=== PATIENT | male | born 1960 | race African-American/Black ===

== ENCOUNTER 2018-06-19 15:25 | Inpatient (IN) | payer OTHER ==
[2018-06-19 16:01] VITALS: BMI 35.6
--- NOTE | 2018-06-19 16:14 | HP ---
CIWA Score - Admission Criteria OASAS Guidelines: Admission for Medically Managed Detox: Requires at least one of the followin. CIWA greater than 12 2. Seizures within the past 24 hours 3. Delirium tremens within the past 24 hours 4. Hallucinations within the past 24 hours 5. Acute intervention needed for co occurring medical disorder 6. Acute intervention needed for co occurring psychiatric disorder 7. Severe withdrawal that cannot be handled at a lower level of care (continued vomiting, continued diarrhea, abnormal vital signs) requiring intravenous medication and/or fluids 8. Admission ROS S - HPI Chief Complaint: I am here for rehab for continued treatment. Allergies/Adverse Reactions: Allergies Allergy/AdvReac Type Severity Reaction Status Date / Time soy Allergy Severe Hives Verified 09/09/14 21:08 soybean Allergy Severe Hives Verified 09/09/14 21:08 History of Present Illness: pt is a 57yr old male with a history of cocaine dependence seeking rehab for treatment. Pt is on a mmtp program with 80mg last dose received today from [facility] from [address] [place] [id number] pending verification Exam Limitations: Physical Impairment (uses a cane for ambulating) - Ebola screening Have you traveled outside of the country in the last 21 days: No Have you had contact with anyone from an Ebola affected area: No Have you been sick,other than usual withdrawal symptoms: No - Review of Systems Constitutional: No Symptoms Reported EENT: reports: No Symptoms Reported Respiratory: reports: No Symptoms reported Cardiac: reports: No Symptoms Reported GI: reports: No Symptoms Reported : reports: No Symptoms Reported Musculoskeletal: reports: Joint Stiffness Integumentary: reports: No Symptoms Reported Neuro: reports: No Symptoms reported Endocrine: reports: No Symptoms Reported Hematology: reports: No Symptoms Reported Psychiatric: reports: Orientated x3 Other Systems: Reviewed and Negative Patient History - Patient Medical History Hx Anemia: No Hx Asthma: No Hx Chronic Obstructive Pulmonary Disease (COPD): No Hx Cancer: No Hx Cardiac Disorders: No Hx Congestive Heart Failure: No Hx Hypertension: No Hx Hypercholesterolemia: No Hx Pacemaker: No HX Cerebrovascular Accident: No Hx Seizures: No Hx Dementia: No Hx Diabetes: No Hx Gastrointestinal Disorders: No Hx Liver Disease: No Hx Genitourinary Disorders: No Hx Sexually Transmitted Disorders: No Hx Renal Disease (ESRD): No Hx Thyroid Disease: No Hx Human Immunodeficiency Virus (HIV): No (negative) Hx Hepatitis C: No (negative) Hx Depression: No Hx Suicide Attempt: No Hx Bipolar Disorder: No Hx Schizophrenia: No - Patient Surgical History Past Surgical History: Yes Hx Orthopedic Surgery: Yes (FX OF RIGHT ANKLE IN 08/[address] [facility]) Anesthesia Reaction: No - PPD History Previous Implant?: Yes Documented Results: Negative w/o proof PPD to be Administered?: Yes - Reproductive History Patient is a Female of Child Bearing Age (11 -55 yrs old): No - Smoking Cessation Smoking history: Current every day smoker Have you smoked in the past 12 months: Yes Aproximately how many cigarettes per day: 10 Cigars Per Day: 0 Hx Chewing Tobacco Use: No Initiated information on smoking cessation: Yes 'Breaking Loose' booklet given: 06/19/18 - Substance & Tx. History Hx Alcohol Use: Yes Hx Substance Use: Yes Substance Use Type: Alcohol, Cocaine Hx Substance Use Treatment: Yes (last detox 2015 [facility]) - Substances Abused Alcohol Route: Oral Frequency: 1-3 times last 30 days Amount used: 2 cans beer Age of first use: 18 Date of Last Use: 06/15/18 Cocaine Route: Smoking Frequency: 1-2 times per week Amount used: $100 Age of first use: 24 Date of Last Use: 06/16/18 Family Disease History - Family Disease History Family Disease History: Diabetes: Father ( leg amputee), Mother (HTN/ ), Other: Father, Mother Admission Physical Exam S - Vital Signs Vital Signs: Vital Signs - 24 hr 06/19/18 15:59 Temperature 97.1 F L Pulse Rate 79 Respiratory 20 Rate Blood Pressure 136/83 - Physical General Appearance: Yes: Appropriately Dressed, Mild Distress, Obese HEENTM: Yes: Hearing grossly Normal, Normal Voice Respiratory: Yes: Lungs Clear, Normal Breath Sounds, No Respiratory Distress Neck: Yes: No masses,lesions,Nodules Breast: Yes: Within Normal Limits Cardiology: Yes: Regular Rhythm, Regular Rate, S1, S2 Abdominal: Yes: Normal Bowel Sounds, Non Tender, Flat Genitourinary: Yes: Within Normal Limits Back: Yes: Normal Inspection Musculoskeletal: Yes: full range of Motion, Gait Steady Extremities: Yes: Normal Capillary Refill, Normal Inspection, Tremors Neurological: Yes: Fully Oriented, Alert, Normal Response Integumentary: Yes: Normal Color Lymphatic: Yes: Within Normal Limits - Diagnostic (1) Ankle fracture, right Current Visit: Yes Status: Chronic Qualifiers: Encounter type: sequela Fracture type: closed Qualified Code(s): S82.891S - Other fracture of right lower leg, sequela (2) Anxiety and depression Current Visit: No Status: Acute (3) Cocaine dependence Current Visit: No Status: Acute Qualifiers: Substance use status: uncomplicated Qualified Code(s): F14.20 - Cocaine dependence, uncomplicated (4) Drug-induced mood disorder Current Visit: No Status: Acute (5) Essential hypertension Current Visit: Yes Status: Chronic (6) Insomnia Current Visit: No Status: Acute (7) Nicotine dependence Current Visit: Yes Status: Chronic Qualifiers: Nicotine product type: cigarettes Substance use status: uncomplicated Qualified Code(s): F17.210 - Nicotine dependence, cigarettes, uncomplicated (8) Syncope Current Visit: No Status: Acute (9) Use of cane as ambulatory aid Current Visit: Yes Status: Chronic (10) CML (chronic myelocytic leukemia) Current Visit: No Status: Chronic Cleared for Admission [facility] - Detox or Rehab [facility] Level of Care: Medically Managed Claeared for Rehab Admission: Yes [facility] Breath Alcohol Content Breath Alcohol Content: 0 Urine Drug Screen - Results Drug Screen Negative: No Urine Drug Screen Results: SASCHA-Cocaine, MTD-Methadone Inpatient Rehab Admission - Initial Determination Are CD services needed?: Yes Free of communicable disease: Yes Not in need of hospitalization: Yes - Rehab Admission Criteria Comorbidities: Yes Lacks judgement: Yes
[2018-06-19] MEDS ORDERED: MAGNESIUM CITRATE 300 ML BOTTLE PO PRN (16:22)
[2018-06-19] MEDS ORDERED: hydrOXYzine PAMOATE 50 MG CAPSULE (FP) PO PRN (16:22)
[2018-06-19] MEDS ORDERED: MAGNESIUM HYDROX 2400MG/30ML ORAL SUSPENSION 30 ML CUP PO PRN (16:22)
[2018-06-19] MEDS ORDERED: LOPERAMIDE HCL 2 MG CAPSULE PO PRN (16:22)
[2018-06-19] MEDS ORDERED: P-EPHED 60MG/TRIPROLIDI 2.5MG TABLET PO PRN (16:22)
[2018-06-19] MEDS ORDERED: MAG HYDROX/AL HYDROX/SIMETH 30 ML UNIT-DOSE CUP PO PRN (16:22)
[2018-06-19] MEDS ORDERED: NICOTINE POLACRILEX 4 MG GUM BC PRN (16:22)
[2018-06-19] MEDS ORDERED: IBUPROFEN 400 MG TABLET (FP) PO PRN (16:22)
--- NOTE | 2018-06-19 19:48 | PN ---
S Progress Note Note: pt states he is taking the medication gleebic for his CML but was told we may not carry this medication. Pt was told to have a family member bring it in for him. Pt in agreement.
[2018-06-19] MEDS ORDERED: TUBERCULIN PPD 5 TU/0.1ML VIAL ID ONE (20:14)
[2018-06-19] MEDS: THIAMINE HCL 100 MG TABLET (FP) PO SCH (21:27)
[2018-06-19] MEDS ORDERED: MELATONIN 5 MG TABLETS PO PRN (22:00)
[2018-06-20] MEDS: NICOTINE 21 MG/24 HOURS TOPICAL PATCH TD SCH (10:17)
[2018-06-20] MEDS: PRENATAL VITAMINS W/ FOLIC ACID TABLET (FP) PO SCH (10:17)
[2018-06-20] MEDS ORDERED: METHADONE HCL 10 MG TABLET PO SCH (10:30)
[2018-06-20] MEDS ORDERED: METHADONE HCL 40 MG DISPERSABLE TABLET ONE (10:38)
[2018-06-20] MEDS ORDERED: METHADONE HCL 10 MG TABLET ONE (10:38)
[2018-06-20] MEDS: METHADONE 40 MG, METHADONE 30 MG PO SCH (10:43)
--- NOTE | 2018-06-20 10:57 | HP ---
Psychiatrist Admission - Data Date of interview: 06/20/18 Admission source: [facility] Identifying data: Patient is a 57 year old single, father of one, unemployed, homeless, and is supported by [facility]. This is one of multiple admissions for patient. Patient admitted to for alcohol, cocaine, and heroin dependence. Medical History: FX of right ankle in August of 2019. Psychiatric History: Patient denies h/o psychiatric hospitalization, outpatient care, and suicide attempt. Patient is on methadone maintanence 70mg daily at the [facility] in [place]. At present he reports stable mood. Physical/Sexual Abuse/Trauma History: denies. Vital Signs: Vital Signs - 24 hr 06/19/18 06/19/18 06/19/18 15:59 19:40 20:25 Temperature 97.1 F L 100.7 F H Pulse Rate 79 91 H Respiratory 20 18 Rate Blood Pressure 136/83 142/81 06/20/18 06/20/18 06/20/18 00:30 03:30 06:54 Temperature 99.1 F Pulse Rate 67 Respiratory 18 18 18 Rate Blood Pressure 119/71 Allergies/Adverse Reactions: Allergies Allergy/AdvReac Type Severity Reaction Status Date / Time soy Allergy Severe Hives Verified 06/19/18 16:26 soybean Allergy Severe Hives Verified 06/19/18 16:26 No Known Drug Allergies Allergy Verified 06/19/18 16:44 Concur with the findings of this exam: Yes - Substance Abuse/Tx History Hx Alcohol Use: Yes ("couple cans per day") Hx Substance Use: Yes (Cocaine- 1-2 grams daily Heroin- one bundle per day ( negative for opiate)) Substance Use Type: Cocaine Hx Substance Use Treatment: Yes ([facility]. ) Mental Status Exam - Mental Status Exam Alert and Oriented to: Time, Place, Person Cognitive Function: Good Patient Appearance: Well Groomed Mood: Hopeful Affect: Appropriate Patient Behavior: Appropriate, Cooperative Speech Pattern: Clear, Appropriate Voice Loudness: Normal Thought Process: Intact, Goal Oriented Thought Disorder: Not Present Hallucinations: Denies Suicidal Ideation: Denies Homicidal Ideation: Denies Insight/Judgement: Poor Sleep: Fair Appetite: Good Muscle strength/Tone: Normal Gait/Station: Other (Ambulates with cane.) Psychiatric Findings - Problem List ([place] 1, 2,3) (1) Methadone maintenance therapy patient Current Visit: Yes Status: Chronic (2) Cocaine dependence Current Visit: Yes Status: Chronic Qualifiers: Substance use status: uncomplicated Qualified Code(s): F14.20 - Cocaine dependence, uncomplicated - Initial Treatment Plan Initial Treatment Plan: Psychoeducation provided. Rehab in progress. Observation.
[2018-06-20] MEDS ORDERED: PNEUMOC 13-VAL CONJ-DIP CRM/PF 0.5 ML DISP.SYRIN IM ONE (12:00)
[2018-06-20] MEDS ORDERED: ALBUTEROL SO4 8 GM HFA INHALER IH PRN (12:33)
--- NOTE | 2018-06-20 12:37 | PN ---
[facility] Progress Note Note: PATIENT SEEN FOR ELEVATED TEMPERATURE. PATIENT ADMITTED TO REHAB LAST NIGHT. LABS PENDING. PATIENT C/O DRY COUGH AND MILD SOB. PATIENT HAS H/O TOBACCO USE. PATIENT DENIES CHEST PAIN, PALPITATIONS AND DIZZINESS. Vital Signs Temperature 99.1 F 06/20/18 06:54 Pulse Rate 67 06/20/18 06:54 Respiratory Rate 18 06/20/18 06:54 Blood Pressure 119/71 06/20/18 06:54 O2 Sat by Pulse Oximetry (%) PE: SKIN WARM AND DRY CAR S1S2 RESP CTA BL, NO WHEEZING OR CRACKLES EXT AMB WITH CANE, FULL ROM ALERT AND ORIENTED X 3 A/P; COUGH MILD TEMP TOBACCO USE AND SOB WILL AWAIT LABS ENCOURAGE ORAL FLUIDS ALBUTEROL INH FOR SOB PRN CONTINUE ROBITUSSIN CONTINUE TO MONITOR CLINICALLY HOLD VACCINES UNTIL TEMP RESOLVED.
--- NOTE | 2018-06-20 12:51 | EKG ---
Test Reason : Blood Pressure : / mmHG Vent. Rate : 082 BPM Atrial Rate : 082 BPM P-R Int : 182 ms QRS Dur : 074 ms QT Int : 358 ms P-R-T Axes : 068 010 023 degrees QTc Int : 418 ms NORMAL SINUS RHYTHM NONSPECIFIC T WAVE ABNORMALITY ABNORMAL ECG NO PREVIOUS ECGS AVAILABLE Confirmed by MEGAN MILLER, ALEYDA ([id number]) on 06/20/2018 12:51:32 PM Referred By: Confirmed By:ALEYDA GUZMAN MD
[2018-06-20 16:05] LABS: HEMOGLOBIN 13.5 GM/dL (11.7-16.9); MCH 28.4 pg (25.7-33.7); MCHC 34.6 g/dl (32.0-35.9); MEAN CELL VOLUME 82.1 fl (80-96); MEAN PLT VOLUME 9.3 fl (7.5-11.1); PLATELET COUNT 178 K/MM3 (134-434); RBC 4.75 M/mm3 (4.00-5.60); RDW 14.6 % (11.9-15.9); WHITE BLOOD COUNT 3.3 K/mm3 (4.0-10.0)
[2018-06-20 16:14] LABS: ALBUMIN 3.4 g/dl (3.4-5.0); ALK PHOS 107 U/L (45-117); ANION GAP 5 MMOL/L (8-16); BILIRUBIN,TOTAL 0.3 mg/dL (0.2-1); BLOOD UREA NITROGEN 11 mg/dL (7-18); CALCIUM 8.1 mg/dL (8.5-10.1); CHLORIDE 103 mmol/L (98-107); CO2 29 mmol/L (21-32); CREATININE 0.9 mg/dL (0.55-1.3); GLUCOSE,RANDOM 79 mg/dL (74-106); POTASSIUM 4.4 mmol/L (3.5-5.1); SGOT/AST 22 U/L (15-37); SGPT/ALT 27 U/L (13-61); SODIUM 137 mmol/L (136-145); TOT PROT 7.1 g/dl (6.4-8.2)
[2018-06-20 19:05] LABS: URINE APPEARANCE CLEAR; URINE BILIRUBIN NEGATIVE (<2.0 mg/dL); URINE COLOR YELLOW; URINE GLUCOSE (UA) NEGATIVE (NEGATIVE); URINE KETONE NEGATIVE (NEGATIVE); URINE LEUK ESTERASE NEGATIVE (NEGATIVE); URINE NITRITE NEGATIVE (NEGATIVE); URINE PROTEIN NEGATIVE (NEGATIVE)
[2018-06-20] MEDS: THIAMINE HCL 100 MG TABLET (FP) PO SCH (21:36)
[2018-06-20] MEDS: guaiFENesin/D-METHORPHAN HB 10 ML UNIT-DOSE CUPS PO PRN (21:36)
[2018-06-20] MEDS: ACETAMINOPHEN 325 MG TABLET (FP) PO PRN (21:36)
[2018-06-21] MEDS ORDERED: METHADONE HCL 10 MG TABLET ONE (04:00)
[2018-06-21] MEDS ORDERED: METHADONE HCL 40 MG DISPERSABLE TABLET ONE (04:01)
[2018-06-21] MEDS: METHADONE 40 MG, METHADONE 30 MG PO SCH (06:16)
[2018-06-21] MEDS: PRENATAL VITAMINS W/ FOLIC ACID TABLET (FP) PO SCH (10:20)
[2018-06-21] MEDS: guaiFENesin/D-METHORPHAN HB 10 ML UNIT-DOSE CUPS PO PRN ×2 (10:20→21:26)
[2018-06-21] MEDS: NICOTINE 21 MG/24 HOURS TOPICAL PATCH TD SCH (10:21)
[2018-06-21] MEDS ORDERED: FLU VACCINE QUAD 60 MCG/0.5 ML (MDV 18-19) IM ONE (12:00)
[2018-06-21] MEDS: THIAMINE HCL 100 MG TABLET (FP) PO SCH (21:26)
[2018-06-21] MEDS: ACETAMINOPHEN 325 MG TABLET (FP) PO PRN (21:26)
[2018-06-22] MEDS ORDERED: METHADONE HCL 10 MG TABLET ONE (03:05)
[2018-06-22] MEDS ORDERED: METHADONE HCL 40 MG DISPERSABLE TABLET ONE (03:05)
[2018-06-22] MEDS: METHADONE 40 MG, METHADONE 30 MG PO SCH (06:03)
[2018-06-22] MEDS: guaiFENesin/D-METHORPHAN HB 10 ML UNIT-DOSE CUPS PO PRN ×2 (10:02→21:39)
[2018-06-22] MEDS: PRENATAL VITAMINS W/ FOLIC ACID TABLET (FP) PO SCH (10:02)
[2018-06-22] MEDS: NICOTINE 21 MG/24 HOURS TOPICAL PATCH TD SCH (10:02)
[2018-06-22] MEDS: THIAMINE HCL 100 MG TABLET (FP) PO SCH (21:39)
[2018-06-23] MEDS ORDERED: METHADONE HCL 10 MG TABLET ONE (02:45)
[2018-06-23] MEDS ORDERED: METHADONE HCL 40 MG DISPERSABLE TABLET ONE (02:45)
[2018-06-23] MEDS: METHADONE 40 MG, METHADONE 30 MG PO SCH (05:58)
[2018-06-23] MEDS: NICOTINE 21 MG/24 HOURS TOPICAL PATCH TD SCH (09:57)
[2018-06-23] MEDS: guaiFENesin/D-METHORPHAN HB 10 ML UNIT-DOSE CUPS PO PRN ×2 (09:58→21:32)
[2018-06-23] MEDS: PRENATAL VITAMINS W/ FOLIC ACID TABLET (FP) PO SCH (09:59)
[2018-06-23] MEDS: THIAMINE HCL 100 MG TABLET (FP) PO SCH (21:32)
[2018-06-24] MEDS ORDERED: METHADONE HCL 40 MG DISPERSABLE TABLET ONE (03:07)
[2018-06-24] MEDS ORDERED: METHADONE HCL 10 MG TABLET ONE (03:07)
[2018-06-24] MEDS: METHADONE 40 MG, METHADONE 30 MG PO SCH (06:04)
[2018-06-24] MEDS: guaiFENesin/D-METHORPHAN HB 10 ML UNIT-DOSE CUPS PO PRN ×2 (06:07→21:31)
[2018-06-24] MEDS: PRENATAL VITAMINS W/ FOLIC ACID TABLET (FP) PO SCH (10:13)
[2018-06-24] MEDS: NICOTINE 21 MG/24 HOURS TOPICAL PATCH TD SCH (10:13)
[2018-06-24] MEDS: THIAMINE HCL 100 MG TABLET (FP) PO SCH (21:31)
[2018-06-25] MEDS ORDERED: METHADONE HCL 10 MG TABLET ONE (03:18)
[2018-06-25] MEDS ORDERED: METHADONE HCL 40 MG DISPERSABLE TABLET ONE (03:19)
[2018-06-25] MEDS: METHADONE 40 MG, METHADONE 30 MG PO SCH (06:03)
[2018-06-25] MEDS: NICOTINE 21 MG/24 HOURS TOPICAL PATCH TD SCH (10:13)
[2018-06-25] MEDS: PRENATAL VITAMINS W/ FOLIC ACID TABLET (FP) PO SCH (10:13)
[2018-06-25] MEDS: guaiFENesin/D-METHORPHAN HB 10 ML UNIT-DOSE CUPS PO PRN ×2 (10:13→21:20)
[2018-06-25] MEDS: THIAMINE HCL 100 MG TABLET (FP) PO SCH (21:20)
[2018-06-26] MEDS ORDERED: METHADONE HCL 40 MG DISPERSABLE TABLET ONE (05:08)
[2018-06-26] MEDS ORDERED: METHADONE HCL 10 MG TABLET ONE (05:08)
[2018-06-26] MEDS: METHADONE 40 MG, METHADONE 30 MG PO SCH (05:55)
[2018-06-26] MEDS: guaiFENesin/D-METHORPHAN HB 10 ML UNIT-DOSE CUPS PO PRN ×2 (08:52→21:21)
[2018-06-26] MEDS: NICOTINE 21 MG/24 HOURS TOPICAL PATCH TD SCH (10:38)
[2018-06-26] MEDS: PRENATAL VITAMINS W/ FOLIC ACID TABLET (FP) PO SCH (10:38)
[2018-06-26] MEDS: THIAMINE HCL 100 MG TABLET (FP) PO SCH (21:21)
[2018-06-27] MEDS ORDERED: METHADONE HCL 10 MG TABLET ONE (06:04)
[2018-06-27] MEDS ORDERED: METHADONE HCL 40 MG DISPERSABLE TABLET ONE (06:04)
[2018-06-27] MEDS: METHADONE 40 MG, METHADONE 30 MG PO SCH (06:05)
[2018-06-27] MEDS: guaiFENesin/D-METHORPHAN HB 10 ML UNIT-DOSE CUPS PO PRN ×2 (06:52→21:29)
[2018-06-27] MEDS: PRENATAL VITAMINS W/ FOLIC ACID TABLET (FP) PO SCH (10:14)
[2018-06-27] MEDS: NICOTINE 21 MG/24 HOURS TOPICAL PATCH TD SCH (10:15)
[2018-06-27] MEDS: THIAMINE HCL 100 MG TABLET (FP) PO SCH (21:29)
[2018-06-28] MEDS ORDERED: METHADONE HCL 10 MG TABLET ONE (05:46)
[2018-06-28] MEDS ORDERED: METHADONE HCL 40 MG DISPERSABLE TABLET ONE (05:46)
[2018-06-28] MEDS: METHADONE 40 MG, METHADONE 30 MG PO SCH (06:17)
[2018-06-28] MEDS: guaiFENesin/D-METHORPHAN HB 10 ML UNIT-DOSE CUPS PO PRN ×2 (06:18→21:20)
[2018-06-28] MEDS: PRENATAL VITAMINS W/ FOLIC ACID TABLET (FP) PO SCH (10:15)
[2018-06-28] MEDS: NICOTINE 21 MG/24 HOURS TOPICAL PATCH TD SCH (10:15)
[2018-06-28] MEDS: MENTHOL/PHENOL 1 EACH UD MM PRN ×2 (10:16→21:21)
[2018-06-28] MEDS: THIAMINE HCL 100 MG TABLET (FP) PO SCH (21:20)
[2018-06-29] MEDS ORDERED: METHADONE HCL 40 MG DISPERSABLE TABLET ONE (03:58)
[2018-06-29] MEDS ORDERED: METHADONE HCL 10 MG TABLET ONE (03:58)
[2018-06-29] MEDS: METHADONE 40 MG, METHADONE 30 MG PO SCH (06:14)
[2018-06-29] MEDS: guaiFENesin/D-METHORPHAN HB 10 ML UNIT-DOSE CUPS PO PRN ×2 (06:15→21:17)
[2018-06-29] MEDS: PRENATAL VITAMINS W/ FOLIC ACID TABLET (FP) PO SCH (09:55)
[2018-06-29] MEDS: NICOTINE 21 MG/24 HOURS TOPICAL PATCH TD SCH (09:55)
[2018-06-29] MEDS: MENTHOL/PHENOL 1 EACH UD MM PRN ×2 (09:56→21:17)
[2018-06-29] MEDS: THIAMINE HCL 100 MG TABLET (FP) PO SCH (21:17)
[2018-06-30] MEDS ORDERED: METHADONE HCL 40 MG DISPERSABLE TABLET ONE (03:31)
[2018-06-30] MEDS ORDERED: METHADONE HCL 10 MG TABLET ONE (03:31)
[2018-06-30] MEDS: guaiFENesin/D-METHORPHAN HB 10 ML UNIT-DOSE CUPS PO PRN ×2 (06:34→21:14)
[2018-06-30] MEDS: METHADONE 40 MG, METHADONE 30 MG PO SCH (06:34)
[2018-06-30] MEDS: MENTHOL/PHENOL 1 EACH UD MM PRN ×2 (06:36→21:14)
[2018-06-30] MEDS: PRENATAL VITAMINS W/ FOLIC ACID TABLET (FP) PO SCH (10:03)
[2018-06-30] MEDS: NICOTINE 21 MG/24 HOURS TOPICAL PATCH TD SCH (10:03)
[2018-06-30] MEDS: THIAMINE HCL 100 MG TABLET (FP) PO SCH (21:14)
[2018-07-01] MEDS ORDERED: METHADONE HCL 40 MG DISPERSABLE TABLET ONE (05:45)
[2018-07-01] MEDS ORDERED: METHADONE HCL 10 MG TABLET ONE (05:45)
[2018-07-01] MEDS: METHADONE 40 MG, METHADONE 30 MG PO SCH (06:35)
[2018-07-01] MEDS: MENTHOL/PHENOL 1 EACH UD MM PRN (06:37)
[2018-07-01 06:59] VITALS: BP 143/88; PULSE 90; TEMP 98.5
[2018-07-01] MEDS: guaiFENesin/D-METHORPHAN HB 10 ML UNIT-DOSE CUPS PO PRN (07:21)
--- NOTE | 2018-07-01 07:45 | PN ---
Psychiatric Progress Note Vital Signs: Vital Signs Period Temp Pulse Resp BP Sys/Hagen Pulse Ox Last 24 Hr 98.5 F 90 18-18 143/88 Date of Session: 07/01/18 Chief Complaint:: Discharge Note HPI: Patient addressing Cocaine Dependence comorbid with opioid Dependence on Agonist Therapy, Nicotine Dependence Current Medications: Active Medications Generic Name Dose Route Start Last Admin Trade Name Freq PRN Reason Stop Dose Admin Acetaminophen 650 mg 06/19/18 16:22 06/21/18 21:26 Tylenol - PO 650 mg Q4H PRN Administration FEVER Al Hydroxide/Mg Hydroxide 30 ml 06/19/18 16:22 Mylanta Oral Suspension - PO Q6H PRN DYSPEPSIA Albuterol Sulfate 2 puff 06/20/18 12:33 Ventolin Hfa Inhaler - IH Q4H PRN SHORT OF BREATH/WHEEZING Eucalyptus/Menthol/Phenol/Sorbitol 1 each 06/19/18 16:22 07/01/18 06:37 Cepastat Lozenge - MM 1 each Q4H PRN Administration SORE THROAT Guaifenesin 10 ml 06/19/18 16:22 07/01/18 07:21 Robitussin Dm - PO 10 ml Q6H PRN Administration COUGH Hydroxyzine Pamoate 50 mg 06/19/18 16:22 Vistaril - PO Q4H PRN AGITATION Ibuprofen 400 mg 06/19/18 16:22 Motrin - PO Q6H PRN Pain level 4-6 Loperamide HCl 4 mg 06/19/18 16:22 Imodium - PO Q6H PRN DIARRHEA Magnesium Citrate 300 ml 06/19/18 16:22 Citroma - PO Q48H PRN CONSTIPATION Magnesium Hydroxide 30 ml 06/19/18 16:22 Milk Of Magnesia - PO DAILY PRN CONSTIPATION Melatonin 5 mg 06/19/18 22:00 06/19/18 21:29 Melatonin PO 5 mg HS PRN Administration INSOMNIA Methadone HCl 40 mg/ Methadone 70 mg 06/27/18 06:00 07/01/18 06:35 HCl 30 mg PO 07/04/18 05:59 70 mg DAILY@0600 ROLO Administration Nicotine 21 mg 06/20/18 10:00 06/30/18 10:03 Nicoderm Patch - TD Not Given DAILY ROLO Nicotine Polacrilex 4 mg 12/12/18 16:22 Nicorette Gum - BC Q2H PRN NICOTINE REPLACEMENT RX Multivit/Folic Acid/Iron 1 tab 06/20/18 10:00 06/30/18 10:03 Vitamins (Sjr) - PO Not Given DAILY ROLO Pseudoephedrine/Triprolidine 1 combo 06/19/18 16:22 06/22/18 10:02 Actifed - PO 1 combo TID PRN Administration NASAL CONGESTION Thiamine HCl 100 mg 06/19/18 22:00 06/30/18 21:14 Vitamin B1 - PO 100 mg HS ROLO Administration Current Side Effect: No Lab tests ordered: Yes Lab tests reviewed: Yes Provider note:: Patient has completed this program today. He has met his treatment goals and will continue to address his issues in outpatient treatment at [facility]. Told headline writer that from his participation in this program, he has learned the importance of making meetings and get a sponsor. He is stable for discharge today. Total face to face time:: 35 Mental Status Exam - Mental Status Exam Alert and Oriented to: Time, Place, Person Cognitive Function: Fair Patient Appearance: Well Groomed Mood: Hopeful, Euthymic Affect: Appropriate Patient Behavior: Cooperative Speech Pattern: Clear Voice Loudness: Normal Thought Process: Intact, Goal Oriented Thought Disorder: Not Present Hallucinations: Denies Suicidal Ideation: Denies Homicidal Ideation: Denies Insight/Judgement: Fair Sleep: Fair Appetite: Good Muscle strength/Tone: Normal, Severe Hypotonicity Psychiatric Treatment Plan - Problem List (1) Cocaine dependence Current Visit: Yes Qualifiers: Substance use status: uncomplicated Qualified Code(s): F14.20 - Cocaine dependence, uncomplicated (2) Opioid dependence on agonist therapy Current Visit: Yes (3) Nicotine dependence Current Visit: Yes Qualifiers: Nicotine product type: cigarettes Substance use status: uncomplicated Qualified Code(s): F17.210 - Nicotine dependence, cigarettes, uncomplicated Initial treatment plan: Patient is discharged today and referred to [facility] for outpatient treatment
[2018-07-01] MEDS: NICOTINE 21 MG/24 HOURS TOPICAL PATCH TD SCH (10:02)
[2018-07-01] MEDS: PRENATAL VITAMINS W/ FOLIC ACID TABLET (FP) PO SCH (10:03)
--- NOTE | 2018-07-01 10:03 | PN ---
S Progress Note Note: PT COMPLETED REHAB TODAY . ALERT O X 3. REFERRED TO [facility] OPD TREATMENT. PT REPORTS HE HAS A PMD AT [facility] IN [place], [place]. Vital Signs 07/01/18 06:58 Temperature 98.5 F Pulse Rate 90 Respiratory 18 Rate Blood Pressure 143/88 NAD PLAN:FOLLOW UP WITH YOUR PMD AT [facility] NEEDED. FOLLOW UP WITH TREATMENT RECOMMENDATION AT [facility] SCHEDULED.
== END 2018-07-01 09:30 | disposition home or self-care (01) | DRG 772 ==
LOC: YASAS 15:25 → Y5N 17:56
PROVIDERS: ADMIT Psychiatry & Neurology Psychiatry; ATTEND Psychiatry & Neurology Psychiatry
PROC: HZ42ZZZ Group Counseling for Substance Abuse Treatment, Cognitive-Behavioral (ICD-10-PCS; principal; 2018-06-19)
DX: F14.20 Cocaine dependence, uncomplicated (principal); F11.20 Opioid dependence, uncomplicated; F17.210 Nicotine dependence, cigarettes, uncomplicated; F41.8 Other specified anxiety disorders; F19.24 Other psychoactive substance dependence with psychoactive substance-induced mood disorder; I10 Essential (primary) hypertension; R50.9 Fever, unspecified; R05 Cough; R06.02 Shortness of breath; G47.00 Insomnia, unspecified; C92.10 Chronic myeloid leukemia, BCR/ABL-positive, not having achieved remission; R26.2 Difficulty in walking, not elsewhere classified; Z99.89 Dependence on other enabling machines and devices
CPT/HCPCS: 36415; 80053; 81003; 85027; 86593; 90688; 93005; 93010; G0008

== ENCOUNTER 2020-12-09 13:24 | Inpatient (IN) | payer OTHER ==
[2020-12-09 14:57] VITALS: BMI 21.9
[2020-12-09] MEDS ORDERED: MAGNESIUM CITRATE 300 ML BOTTLE PO PRN (20:41)
[2020-12-09] MEDS ORDERED: P-EPHED 60MG/TRIPROLIDI 2.5MG TABLET PO PRN (20:41)
[2020-12-09] MEDS ORDERED: guaiFENesin 200 MG/10 ML 10 ML UNIT-DOSE CUPS PO PRN (20:41)
[2020-12-09] MEDS ORDERED: LOPERAMIDE HCL 2 MG CAPSULE PO PRN (20:41)
[2020-12-09] MEDS ORDERED: MAG HYDROX/AL HYDROX/SIMETH 30 ML UNIT-DOSE CUP PO PRN (20:41)
[2020-12-09] MEDS ORDERED: NALOXONE HCL 0.4 MG/ML VIAL IM PRN (20:41)
[2020-12-09] MEDS ORDERED: NALOXONE (NARCAN) HCL 4 MG/0.1 ML SPRAY NS PRN (20:41)
[2020-12-09] MEDS ORDERED: NICOTINE POLACRILEX 2 MG GUM BC PRN (20:41)
[2020-12-10] MEDS ORDERED: TUBERCULIN PPD 5 TU/0.1ML VIAL ID ONE (00:30)
[2020-12-10] MEDS: THIAMINE HCL 100 MG TABLET (FP) PO SCH ×2 (01:11→22:33)
[2020-12-10] MEDS: MELATONIN 5 MG TABLETS PO SCH ×2 (01:11→22:33)
[2020-12-10] MEDS ORDERED: METHADONE HCL 10 MG TABLET PO ONE (09:32)
[2020-12-10] MEDS ORDERED: METHADONE 120 MG, METHADONE 30 MG PO ONE (10:00)
[2020-12-10] MEDS ORDERED: METHADONE HCL 10 MG TABLET ONE (10:20)
[2020-12-10] MEDS ORDERED: METHADONE HCL 40 MG DISPERSABLE TABLET ONE (10:20)
[2020-12-10] MEDS: PRENATAL VITAMINS W/ FOLIC ACID TABLET (FP) PO SCH (10:24)
[2020-12-10] MEDS: NICOTINE 21 MG/24 HOURS TOPICAL PATCH TD SCH (10:24)
[2020-12-10 11:20] LABS: HEMATOCRIT 40.5 % (35.4-49); HEMOGLOBIN 13.3 GM/dL (11.7-16.9); MCH 27.7 pg (25.7-33.7); MCHC 32.9 g/dl (32.0-35.9); MEAN CELL VOLUME 84.2 fl (80-96); MEAN PLT VOLUME 9.2 fl (7.5-11.1); PLATELET COUNT 212 K/MM3 (134-434); RBC 4.81 M/mm3 (4.00-5.60); RDW 13.9 % (11.9-15.9); WHITE BLOOD COUNT 5.8 K/mm3 (4.0-10.0)
[2020-12-10 11:39] LABS: BILIRUBIN,TOTAL 0.2 mg/dL (0.2-1)
[2020-12-10 11:41] LABS: BLOOD UREA NITROGEN 14.4 mg/dL (7-18)
[2020-12-10 11:42] LABS: ALBUMIN 3.2 g/dl (3.4-5.0); CREATININE 0.8 mg/dL (0.55-1.3)
[2020-12-10 11:43] LABS: CALCIUM 9.1 mg/dL (8.5-10.1); TOT PROT 6.7 g/dl (6.4-8.2)
[2020-12-11] MEDS ORDERED: METHADONE HCL 40 MG DISPERSABLE TABLET ONE (04:09)
[2020-12-11] MEDS ORDERED: METHADONE HCL 10 MG TABLET ONE (04:09)
[2020-12-11] MEDS ORDERED: METHADONE HCL 10 MG TABLET PO SCH (06:00)
[2020-12-11] MEDS: METHADONE 120 MG, METHADONE 30 MG PO SCH (06:46)
[2020-12-11] MEDS: NICOTINE 21 MG/24 HOURS TOPICAL PATCH TD SCH (09:55)
[2020-12-11] MEDS: PRENATAL VITAMINS W/ FOLIC ACID TABLET (FP) PO SCH (09:55)
[2020-12-11] MEDS: MELATONIN 5 MG TABLETS PO SCH (21:52)
[2020-12-11] MEDS: THIAMINE HCL 100 MG TABLET (FP) PO SCH (21:52)
[2020-12-12] MEDS ORDERED: METHADONE HCL 10 MG TABLET ONE (07:07)
[2020-12-12] MEDS ORDERED: METHADONE HCL 40 MG DISPERSABLE TABLET ONE (07:07)
[2020-12-12] MEDS: METHADONE 120 MG, METHADONE 30 MG PO SCH (07:09)
[2020-12-12] MEDS: PRENATAL VITAMINS W/ FOLIC ACID TABLET (FP) PO SCH (09:55)
[2020-12-12] MEDS: NICOTINE 21 MG/24 HOURS TOPICAL PATCH TD SCH (09:55)
[2020-12-12] MEDS: MELATONIN 5 MG TABLETS PO SCH (21:44)
[2020-12-12] MEDS: THIAMINE HCL 100 MG TABLET (FP) PO SCH (21:45)
[2020-12-13] MEDS ORDERED: METHADONE HCL 10 MG TABLET ONE (04:07)
[2020-12-13] MEDS ORDERED: METHADONE HCL 40 MG DISPERSABLE TABLET ONE (04:07)
[2020-12-13] MEDS: METHADONE 120 MG, METHADONE 30 MG PO SCH (06:54)
[2020-12-13] MEDS: PRENATAL VITAMINS W/ FOLIC ACID TABLET (FP) PO SCH (10:00)
[2020-12-13] MEDS: NICOTINE 21 MG/24 HOURS TOPICAL PATCH TD SCH (10:00)
[2020-12-13 14:07] LABS: SARS-CoV-2 NAA Not Detected (Not Detected)
[2020-12-13] MEDS: THIAMINE HCL 100 MG TABLET (FP) PO SCH (22:33)
[2020-12-13] MEDS: MELATONIN 5 MG TABLETS PO SCH (22:33)
[2020-12-14] MEDS ORDERED: METHADONE HCL 10 MG TABLET ONE (03:29)
[2020-12-14] MEDS ORDERED: METHADONE HCL 40 MG DISPERSABLE TABLET ONE (03:29)
[2020-12-14] MEDS: METHADONE 120 MG, METHADONE 30 MG PO SCH (06:30)
[2020-12-14] MEDS: NICOTINE 21 MG/24 HOURS TOPICAL PATCH TD SCH (10:17)
[2020-12-14] MEDS: PRENATAL VITAMINS W/ FOLIC ACID TABLET (FP) PO SCH (10:17)
[2020-12-14] MEDS: ACETAMINOPHEN 325 MG TABLET (FP) PO PRN (10:18)
[2020-12-14] MEDS: hydrOXYzine PAMOATE 25 MG CAPSULE (FP) PO PRN (10:18)
[2020-12-14] MEDS: THIAMINE HCL 100 MG TABLET (FP) PO SCH (22:31)
[2020-12-14] MEDS: MELATONIN 5 MG TABLETS PO SCH (22:31)
[2020-12-15] MEDS ORDERED: METHADONE HCL 10 MG TABLET ONE (03:24)
[2020-12-15] MEDS ORDERED: METHADONE HCL 40 MG DISPERSABLE TABLET ONE (03:24)
[2020-12-15] MEDS ORDERED: MASKS NR ONE (06:21)
[2020-12-15] MEDS: METHADONE 120 MG, METHADONE 30 MG PO SCH (06:22)
[2020-12-15] MEDS: NICOTINE 21 MG/24 HOURS TOPICAL PATCH TD SCH (10:02)
[2020-12-15] MEDS: PRENATAL VITAMINS W/ FOLIC ACID TABLET (FP) PO SCH (10:02)
[2020-12-15] MEDS: MELATONIN 5 MG TABLETS PO SCH (21:49)
[2020-12-15] MEDS: THIAMINE HCL 100 MG TABLET (FP) PO SCH (21:49)
[2020-12-16] MEDS ORDERED: METHADONE HCL 10 MG TABLET ONE (03:26)
[2020-12-16] MEDS ORDERED: METHADONE HCL 40 MG DISPERSABLE TABLET ONE (03:26)
[2020-12-16] MEDS: METHADONE 120 MG, METHADONE 30 MG PO SCH (06:27)
[2020-12-16] MEDS: PRENATAL VITAMINS W/ FOLIC ACID TABLET (FP) PO SCH (10:34)
[2020-12-16] MEDS: NICOTINE 21 MG/24 HOURS TOPICAL PATCH TD SCH (10:34)
[2020-12-16] MEDS: THIAMINE HCL 100 MG TABLET (FP) PO SCH (21:40)
[2020-12-16] MEDS: MELATONIN 5 MG TABLETS PO SCH (21:40)
[2020-12-17] MEDS: METHADONE 120 MG, METHADONE 30 MG PO SCH (06:30)
[2020-12-17] MEDS ORDERED: METHADONE HCL 10 MG TABLET ONE (06:30)
[2020-12-17] MEDS ORDERED: METHADONE HCL 40 MG DISPERSABLE TABLET ONE (06:30)
[2020-12-17] MEDS: PRENATAL VITAMINS W/ FOLIC ACID TABLET (FP) PO SCH (10:10)
[2020-12-17] MEDS: NICOTINE 21 MG/24 HOURS TOPICAL PATCH TD SCH (10:11)
[2020-12-17] MEDS: THIAMINE HCL 100 MG TABLET (FP) PO SCH (21:47)
[2020-12-17] MEDS: MELATONIN 5 MG TABLETS PO SCH (21:47)
[2020-12-18] MEDS ORDERED: METHADONE HCL 10 MG TABLET ONE (03:25)
[2020-12-18] MEDS ORDERED: METHADONE HCL 40 MG DISPERSABLE TABLET ONE (03:25)
[2020-12-18] MEDS: METHADONE 120 MG, METHADONE 30 MG PO SCH (06:47)
[2020-12-18] MEDS: NICOTINE 21 MG/24 HOURS TOPICAL PATCH TD SCH (10:08)
[2020-12-18] MEDS: PRENATAL VITAMINS W/ FOLIC ACID TABLET (FP) PO SCH (10:20)
[2020-12-18] MEDS: MELATONIN 5 MG TABLETS PO SCH (21:45)
[2020-12-18] MEDS: THIAMINE HCL 100 MG TABLET (FP) PO SCH (21:45)
[2020-12-19] MEDS ORDERED: METHADONE HCL 10 MG TABLET ONE (02:16)
[2020-12-19] MEDS ORDERED: METHADONE HCL 40 MG DISPERSABLE TABLET ONE (02:16)
[2020-12-19] MEDS: METHADONE 120 MG, METHADONE 30 MG PO SCH (06:15)
[2020-12-19] MEDS: MAGNESIUM HYDROX 2400MG/30ML ORAL SUSPENSION 30 ML CUP PO PRN (07:27)
[2020-12-19] MEDS: NICOTINE 21 MG/24 HOURS TOPICAL PATCH TD SCH (10:29)
[2020-12-19] MEDS: hydrOXYzine PAMOATE 25 MG CAPSULE (FP) PO PRN (10:30)
[2020-12-19] MEDS: PRENATAL VITAMINS W/ FOLIC ACID TABLET (FP) PO SCH (10:30)
[2020-12-19] MEDS: MELATONIN 5 MG TABLETS PO SCH (21:38)
[2020-12-19] MEDS: THIAMINE HCL 100 MG TABLET (FP) PO SCH (21:38)
[2020-12-20] MEDS ORDERED: METHADONE HCL 40 MG DISPERSABLE TABLET ONE (03:20)
[2020-12-20] MEDS ORDERED: METHADONE HCL 10 MG TABLET ONE (03:20)
[2020-12-20] MEDS: METHADONE 120 MG, METHADONE 30 MG PO SCH (06:13)
[2020-12-20] MEDS: PRENATAL VITAMINS W/ FOLIC ACID TABLET (FP) PO SCH (10:19)
[2020-12-20] MEDS: NICOTINE 21 MG/24 HOURS TOPICAL PATCH TD SCH (10:19)
[2020-12-20] MEDS: MELATONIN 5 MG TABLETS PO SCH (21:39)
[2020-12-20] MEDS: THIAMINE HCL 100 MG TABLET (FP) PO SCH (21:39)
[2020-12-20] MEDS: MAGNESIUM HYDROX 2400MG/30ML ORAL SUSPENSION 30 ML CUP PO PRN (21:39)
[2020-12-20] MEDS: hydrOXYzine PAMOATE 25 MG CAPSULE (FP) PO PRN (21:40)
[2020-12-21] MEDS ORDERED: METHADONE HCL 40 MG DISPERSABLE TABLET ONE (03:23)
[2020-12-21] MEDS ORDERED: METHADONE HCL 10 MG TABLET ONE (03:23)
[2020-12-21] MEDS: METHADONE 120 MG, METHADONE 30 MG PO SCH (06:36)
[2020-12-21] MEDS: PRENATAL VITAMINS W/ FOLIC ACID TABLET (FP) PO SCH (10:40)
[2020-12-21] MEDS: NICOTINE 21 MG/24 HOURS TOPICAL PATCH TD SCH (10:40)
[2020-12-21] MEDS: THIAMINE HCL 100 MG TABLET (FP) PO SCH (21:40)
[2020-12-21] MEDS: MELATONIN 5 MG TABLETS PO SCH (21:40)
[2020-12-22] MEDS ORDERED: METHADONE HCL 40 MG DISPERSABLE TABLET ONE (03:25)
[2020-12-22] MEDS ORDERED: METHADONE HCL 10 MG TABLET ONE (03:25)
[2020-12-22] MEDS: METHADONE 120 MG, METHADONE 30 MG PO SCH (06:45)
[2020-12-22] MEDS: NICOTINE 21 MG/24 HOURS TOPICAL PATCH TD SCH (10:00)
[2020-12-22] MEDS: PRENATAL VITAMINS W/ FOLIC ACID TABLET (FP) PO SCH (10:00)
[2020-12-22] MEDS: THIAMINE HCL 100 MG TABLET (FP) PO SCH (21:47)
[2020-12-22] MEDS: MELATONIN 5 MG TABLETS PO SCH (21:48)
[2020-12-23] MEDS ORDERED: METHADONE HCL 10 MG TABLET ONE (06:24)
[2020-12-23] MEDS ORDERED: METHADONE HCL 40 MG DISPERSABLE TABLET ONE (06:25)
[2020-12-23] MEDS: METHADONE 120 MG, METHADONE 30 MG PO SCH (06:43)
[2020-12-23] MEDS: PRENATAL VITAMINS W/ FOLIC ACID TABLET (FP) PO SCH (10:24)
[2020-12-23] MEDS: NICOTINE 21 MG/24 HOURS TOPICAL PATCH TD SCH (10:24)
[2020-12-23] MEDS: THIAMINE HCL 100 MG TABLET (FP) PO SCH (21:49)
[2020-12-23] MEDS: MELATONIN 5 MG TABLETS PO SCH (21:50)
[2020-12-24] MEDS ORDERED: METHADONE HCL 40 MG DISPERSABLE TABLET ONE (04:44)
[2020-12-24] MEDS ORDERED: METHADONE HCL 10 MG TABLET ONE (04:44)
[2020-12-24] MEDS: METHADONE 120 MG, METHADONE 30 MG PO SCH (06:23)
[2020-12-24] MEDS: NICOTINE 21 MG/24 HOURS TOPICAL PATCH TD SCH (10:45)
[2020-12-24] MEDS: PRENATAL VITAMINS W/ FOLIC ACID TABLET (FP) PO SCH (10:45)
[2020-12-24] MEDS: MELATONIN 5 MG TABLETS PO SCH (21:21)
[2020-12-24] MEDS: THIAMINE HCL 100 MG TABLET (FP) PO SCH (21:21)
[2020-12-25] MEDS ORDERED: METHADONE HCL 10 MG TABLET ONE (05:10)
[2020-12-25] MEDS ORDERED: METHADONE HCL 40 MG DISPERSABLE TABLET ONE (05:10)
[2020-12-25] MEDS: METHADONE 120 MG, METHADONE 30 MG PO SCH (07:10)
[2020-12-25] MEDS: PRENATAL VITAMINS W/ FOLIC ACID TABLET (FP) PO SCH (09:49)
[2020-12-25] MEDS: NICOTINE 21 MG/24 HOURS TOPICAL PATCH TD SCH (09:49)
[2020-12-25] MEDS: MELATONIN 5 MG TABLETS PO SCH (21:02)
[2020-12-25] MEDS: THIAMINE HCL 100 MG TABLET (FP) PO SCH (21:02)
[2020-12-26] MEDS ORDERED: METHADONE HCL 10 MG TABLET ONE (03:25)
[2020-12-26] MEDS ORDERED: METHADONE HCL 40 MG DISPERSABLE TABLET ONE (03:25)
[2020-12-26] MEDS: METHADONE 120 MG, METHADONE 30 MG PO SCH (06:38)
[2020-12-26] MEDS: NICOTINE 21 MG/24 HOURS TOPICAL PATCH TD SCH (09:58)
[2020-12-26] MEDS: PRENATAL VITAMINS W/ FOLIC ACID TABLET (FP) PO SCH (09:58)
[2020-12-26] MEDS: MELATONIN 5 MG TABLETS PO SCH (22:00)
[2020-12-26] MEDS: THIAMINE HCL 100 MG TABLET (FP) PO SCH (22:00)
[2020-12-27] MEDS ORDERED: METHADONE HCL 40 MG DISPERSABLE TABLET ONE (03:48)
[2020-12-27] MEDS ORDERED: METHADONE HCL 10 MG TABLET ONE (03:48)
[2020-12-27] MEDS: METHADONE 120 MG, METHADONE 30 MG PO SCH (06:23)
[2020-12-27] MEDS: NICOTINE 21 MG/24 HOURS TOPICAL PATCH TD SCH (09:41)
[2020-12-27] MEDS: PRENATAL VITAMINS W/ FOLIC ACID TABLET (FP) PO SCH (09:41)
[2020-12-27] MEDS: IBUPROFEN 400 MG TABLET (FP) PO PRN (09:57)
[2020-12-27] MEDS ORDERED: BACITRACIN 0.9 GM PACKET TP SCH (11:15)
[2020-12-27] MEDS: BACITRACIN 0.9 GM PACKET TP SCH ×2 (16:05→21:09)
[2020-12-27] MEDS: THIAMINE HCL 100 MG TABLET (FP) PO SCH (21:09)
[2020-12-27] MEDS: MELATONIN 5 MG TABLETS PO SCH (21:09)
[2020-12-28] MEDS ORDERED: METHADONE HCL 10 MG TABLET ONE (05:28)
[2020-12-28] MEDS ORDERED: METHADONE HCL 40 MG DISPERSABLE TABLET ONE (05:28)
[2020-12-28] MEDS: METHADONE 120 MG, METHADONE 30 MG PO SCH (06:37)
[2020-12-28] MEDS: PRENATAL VITAMINS W/ FOLIC ACID TABLET (FP) PO SCH (10:21)
[2020-12-28] MEDS: IBUPROFEN 400 MG TABLET (FP) PO PRN (10:22)
[2020-12-28] MEDS: BACITRACIN 0.9 GM PACKET TP SCH ×2 (10:22→21:39)
[2020-12-28] MEDS: NICOTINE 21 MG/24 HOURS TOPICAL PATCH TD SCH (10:23)
[2020-12-28] MEDS: THIAMINE HCL 100 MG TABLET (FP) PO SCH (21:39)
[2020-12-28] MEDS: MELATONIN 5 MG TABLETS PO SCH (21:39)
[2020-12-29] MEDS ORDERED: METHADONE HCL 40 MG DISPERSABLE TABLET ONE (04:18)
[2020-12-29] MEDS ORDERED: METHADONE HCL 10 MG TABLET ONE (04:18)
[2020-12-29] MEDS: METHADONE 120 MG, METHADONE 30 MG PO SCH (06:33)
[2020-12-29] MEDS: BACITRACIN 0.9 GM PACKET TP SCH ×3 (09:50→21:32)
[2020-12-29] MEDS: PRENATAL VITAMINS W/ FOLIC ACID TABLET (FP) PO SCH (09:50)
[2020-12-29] MEDS: NICOTINE 21 MG/24 HOURS TOPICAL PATCH TD SCH (09:50)
[2020-12-29] MEDS: IBUPROFEN 400 MG TABLET (FP) PO PRN ×2 (09:51→21:33)
[2020-12-29] MEDS ORDERED: COVID-19 VAC,AD26(JANSSEN)/PF 0.5 ML IM ONE (12:00)
[2020-12-29] MEDS: MELATONIN 5 MG TABLETS PO SCH (21:32)
[2020-12-29] MEDS: THIAMINE HCL 100 MG TABLET (FP) PO SCH (21:32)
[2020-12-30] MEDS ORDERED: METHADONE HCL 40 MG DISPERSABLE TABLET ONE (03:16)
[2020-12-30] MEDS ORDERED: METHADONE HCL 10 MG TABLET ONE (03:16)
[2020-12-30] MEDS: METHADONE 120 MG, METHADONE 30 MG PO SCH (06:43)
[2020-12-30] MEDS: BACITRACIN 0.9 GM PACKET TP SCH ×2 (09:55→21:45)
[2020-12-30] MEDS: NICOTINE 21 MG/24 HOURS TOPICAL PATCH TD SCH (09:55)
[2020-12-30] MEDS: PRENATAL VITAMINS W/ FOLIC ACID TABLET (FP) PO SCH (09:55)
[2020-12-30] MEDS: IBUPROFEN 400 MG TABLET (FP) PO PRN (09:56)
[2020-12-30] MEDS: THIAMINE HCL 100 MG TABLET (FP) PO SCH (21:44)
[2020-12-30] MEDS: MELATONIN 5 MG TABLETS PO SCH (21:44)
[2020-12-30] MEDS: ACETAMINOPHEN 325 MG TABLET (FP) PO PRN (21:45)
[2020-12-31] MEDS ORDERED: METHADONE HCL 10 MG TABLET ONE (05:02)
[2020-12-31] MEDS ORDERED: METHADONE HCL 40 MG DISPERSABLE TABLET ONE (05:03)
[2020-12-31] MEDS: METHADONE 120 MG, METHADONE 30 MG PO SCH (06:17)
[2020-12-31] MEDS: BACITRACIN 0.9 GM PACKET TP SCH ×2 (10:06→21:24)
[2020-12-31] MEDS: NICOTINE 21 MG/24 HOURS TOPICAL PATCH TD SCH (10:06)
[2020-12-31] MEDS: PRENATAL VITAMINS W/ FOLIC ACID TABLET (FP) PO SCH (10:06)
[2020-12-31] MEDS: IBUPROFEN 400 MG TABLET (FP) PO PRN ×2 (10:08→21:25)
[2020-12-31] MEDS: MAGNESIUM HYDROX 2400MG/30ML ORAL SUSPENSION 30 ML CUP PO PRN (10:09)
[2020-12-31] MEDS: THIAMINE HCL 100 MG TABLET (FP) PO SCH (21:24)
[2020-12-31] MEDS: MELATONIN 5 MG TABLETS PO SCH (21:24)
[2021-01-01] MEDS ORDERED: METHADONE HCL 10 MG TABLET ONE (04:07)
[2021-01-01] MEDS ORDERED: METHADONE HCL 40 MG DISPERSABLE TABLET ONE (04:08)
[2021-01-01] MEDS: METHADONE 120 MG, METHADONE 30 MG PO SCH (06:17)
[2021-01-01] MEDS: MAGNESIUM HYDROX 2400MG/30ML ORAL SUSPENSION 30 ML CUP PO PRN (06:21)
[2021-01-01] MEDS: NICOTINE 21 MG/24 HOURS TOPICAL PATCH TD SCH (10:00)
[2021-01-01] MEDS: BACITRACIN 0.9 GM PACKET TP SCH ×2 (10:00→21:26)
[2021-01-01] MEDS: PRENATAL VITAMINS W/ FOLIC ACID TABLET (FP) PO SCH (10:00)
[2021-01-01] MEDS: ACETAMINOPHEN 325 MG TABLET (FP) PO PRN ×2 (10:01→21:26)
[2021-01-01] MEDS: THIAMINE HCL 100 MG TABLET (FP) PO SCH (21:26)
[2021-01-01] MEDS: MELATONIN 5 MG TABLETS PO SCH (21:26)
[2021-01-02] MEDS ORDERED: METHADONE HCL 10 MG TABLET ONE (02:10)
[2021-01-02] MEDS ORDERED: METHADONE HCL 40 MG DISPERSABLE TABLET ONE (02:11)
[2021-01-02] MEDS: MAGNESIUM HYDROX 2400MG/30ML ORAL SUSPENSION 30 ML CUP PO PRN (06:17)
[2021-01-02] MEDS: METHADONE 120 MG, METHADONE 30 MG PO SCH (06:18)
[2021-01-02] MEDS: NICOTINE 21 MG/24 HOURS TOPICAL PATCH TD SCH (10:02)
[2021-01-02] MEDS: PRENATAL VITAMINS W/ FOLIC ACID TABLET (FP) PO SCH (10:02)
[2021-01-02] MEDS: BACITRACIN 0.9 GM PACKET TP SCH ×2 (10:03→21:32)
[2021-01-02] MEDS: IBUPROFEN 400 MG TABLET (FP) PO PRN (10:03)
[2021-01-02] MEDS: THIAMINE HCL 100 MG TABLET (FP) PO SCH (21:31)
[2021-01-02] MEDS: MELATONIN 5 MG TABLETS PO SCH (21:31)
[2021-01-02] MEDS: ACETAMINOPHEN 325 MG TABLET (FP) PO PRN (21:32)
[2021-01-03] MEDS ORDERED: METHADONE HCL 10 MG TABLET ONE (05:03)
[2021-01-03] MEDS ORDERED: METHADONE HCL 40 MG DISPERSABLE TABLET ONE (05:03)
[2021-01-03] MEDS: METHADONE 120 MG, METHADONE 30 MG PO SCH (06:15)
[2021-01-03] MEDS: MAGNESIUM HYDROX 2400MG/30ML ORAL SUSPENSION 30 ML CUP PO PRN (06:15)
[2021-01-03] MEDS: BACITRACIN 0.9 GM PACKET TP SCH ×2 (09:58→21:48)
[2021-01-03] MEDS: IBUPROFEN 400 MG TABLET (FP) PO PRN ×2 (09:59→21:48)
[2021-01-03] MEDS: PRENATAL VITAMINS W/ FOLIC ACID TABLET (FP) PO SCH (10:00)
[2021-01-03] MEDS: NICOTINE 21 MG/24 HOURS TOPICAL PATCH TD SCH (10:00)
[2021-01-03] MEDS: THIAMINE HCL 100 MG TABLET (FP) PO SCH (21:48)
[2021-01-03] MEDS: MELATONIN 5 MG TABLETS PO SCH (21:48)
[2021-01-04] MEDS ORDERED: METHADONE HCL 10 MG TABLET ONE (05:21)
[2021-01-04] MEDS ORDERED: METHADONE HCL 40 MG DISPERSABLE TABLET ONE (05:21)
[2021-01-04] MEDS: METHADONE 120 MG, METHADONE 30 MG PO SCH (06:44)
[2021-01-04] MEDS: IBUPROFEN 400 MG TABLET (FP) PO PRN ×2 (06:49→21:36)
[2021-01-04] MEDS: MAGNESIUM HYDROX 2400MG/30ML ORAL SUSPENSION 30 ML CUP PO PRN (06:49)
[2021-01-04] MEDS ORDERED: SENNOSIDES/DOCUSATE COMBO (SENNA PLUS) TABLET (UD) PO PRN (09:48)
[2021-01-04] MEDS: NICOTINE 21 MG/24 HOURS TOPICAL PATCH TD SCH (09:55)
[2021-01-04] MEDS: PRENATAL VITAMINS W/ FOLIC ACID TABLET (FP) PO SCH (09:55)
[2021-01-04] MEDS: BACITRACIN 0.9 GM PACKET TP SCH ×2 (09:55→21:36)
[2021-01-04] MEDS: THIAMINE HCL 100 MG TABLET (FP) PO SCH (21:36)
[2021-01-04] MEDS: MELATONIN 5 MG TABLETS PO SCH (21:37)
[2021-01-05] MEDS ORDERED: METHADONE HCL 10 MG TABLET ONE (06:17)
[2021-01-05] MEDS ORDERED: METHADONE HCL 40 MG DISPERSABLE TABLET ONE (06:18)
[2021-01-05] MEDS: METHADONE 120 MG, METHADONE 30 MG PO SCH (06:18)
[2021-01-05] MEDS: PRENATAL VITAMINS W/ FOLIC ACID TABLET (FP) PO SCH (09:22)
[2021-01-05] MEDS: NICOTINE 21 MG/24 HOURS TOPICAL PATCH TD SCH (09:22)
[2021-01-05] MEDS: BACITRACIN 0.9 GM PACKET TP SCH ×2 (09:22→21:31)
[2021-01-05] MEDS: MELATONIN 5 MG TABLETS PO SCH (21:31)
[2021-01-05] MEDS: THIAMINE HCL 100 MG TABLET (FP) PO SCH (21:31)
[2021-01-05] MEDS: hydrOXYzine PAMOATE 25 MG CAPSULE (FP) PO PRN (21:31)
[2021-01-06] MEDS ORDERED: METHADONE HCL 40 MG DISPERSABLE TABLET ONE (02:33)
[2021-01-06] MEDS ORDERED: METHADONE HCL 10 MG TABLET ONE (02:33)
[2021-01-06] MEDS: METHADONE 120 MG, METHADONE 30 MG PO SCH (06:37)
[2021-01-06 07:15] VITALS: BP 103/60; PULSE 81; TEMP 97.6
== END 2021-01-06 08:50 | disposition home or self-care (01) | DRG 895 ==
LOC: YASAS 13:24 → Y5N 20:06
PROVIDERS: ADMIT Allergy & Immunology; ATTEND Allergy & Immunology
PROC: HZ42ZZZ Group Counseling for Substance Abuse Treatment, Cognitive-Behavioral (ICD-10-PCS; principal; 2020-12-09)
DX: F10.20 Alcohol dependence, uncomplicated (principal); F14.20 Cocaine dependence, uncomplicated; F11.20 Opioid dependence, uncomplicated; C92.10 Chronic myeloid leukemia, BCR/ABL-positive, not having achieved remission; F17.210 Nicotine dependence, cigarettes, uncomplicated; M19.90 Unspecified osteoarthritis, unspecified site; M10.9 Gout, unspecified; K59.09 Other constipation; R26.89 Other abnormalities of gait and mobility; Z99.89 Dependence on other enabling machines and devices; Z91.14 Patient's other noncompliance with medication regimen; Z91.19 Patient's noncompliance with other medical treatment and regimen
CPT/HCPCS: 0031A; 36415; 80053; 85027; 86780; 90834; 90853-GT; 91303; 93005; 93010; C9803; U0003; U0005

== ENCOUNTER 2021-04-24 18:58 | Inpatient (IN) | payer OTHER ==
[2021-04-24 19:48] VITALS: BMI 31.9
[2021-04-25] MEDS ORDERED: ACETAMINOPHEN 325 MG TABLET (FP) PO PRN (02:17)
[2021-04-25] MEDS ORDERED: P-EPHED 60MG/TRIPROLIDI 2.5MG TABLET PO PRN (02:17)
[2021-04-25] MEDS ORDERED: MAGNESIUM CITRATE 300 ML BOTTLE PO PRN (02:17)
[2021-04-25] MEDS ORDERED: MAG HYDROX/AL HYDROX/SIMETH 30 ML UNIT-DOSE CUP PO PRN (02:17)
[2021-04-25] MEDS ORDERED: NICOTINE POLACRILEX 2 MG GUM BC PRN (02:17)
[2021-04-25] MEDS ORDERED: guaiFENesin 200 MG/10 ML 10 ML UNIT-DOSE CUPS PO PRN (02:17)
[2021-04-25] MEDS ORDERED: LOPERAMIDE HCL 2 MG CAPSULE PO PRN (02:17)
[2021-04-25] MEDS ORDERED: IBUPROFEN 400 MG TABLET (FP) PO PRN (02:17)
[2021-04-25] MEDS ORDERED: methaDONE HCL 40 MG DISPERSABLE TABLET PO SCH (07:45)
[2021-04-25] MEDS ORDERED: methaDONE HCL 10 MG TABLET ONE (07:51)
[2021-04-25] MEDS ORDERED: methaDONE HCL 40 MG DISPERSABLE TABLET ONE (07:52)
[2021-04-25] MEDS: NICOTINE 14 MG/24 HOURS TOPICAL PATCH TD SCH (10:03)
[2021-04-25] MEDS: PRENATAL VITAMINS W/ FOLIC ACID TABLET (FP) PO SCH (10:13)
[2021-04-25] MEDS ORDERED: FLU VACC QS2021-22(6MOS UP)/PF 60 MCG/0.5 ML SYRINGE IM ONE (12:00)
[2021-04-25 12:27] LABS: ALBUMIN 3.3 g/dl (3.4-5.0); BILIRUBIN,TOTAL 0.3 mg/dL (0.2-1); BLOOD UREA NITROGEN 17.1 mg/dL (7-18); CALCIUM 8.2 mg/dL (8.5-10.1); TOT PROT 7.1 g/dl (6.4-8.2)
[2021-04-25] MEDS: IMATINIB MESYLATE 400 MG PO SCH (13:30)
[2021-04-25 17:40] LABS: HEMATOCRIT 36.3 % (35.4-49); HEMOGLOBIN 12.3 GM/dL (11.7-16.9); MCH 27.8 pg (25.7-33.7); MEAN CELL VOLUME 81.8 fl (80-96); MEAN PLT VOLUME 9.4 fl (7.5-11.1); PLATELET COUNT 225 10^3/uL (134-434); RBC 4.44 M/mm3 (4.00-5.60); WHITE BLOOD COUNT 6.7 K/mm3 (4.0-10.0)
[2021-04-25] MEDS: MELATONIN 5 MG TABLETS PO SCH (22:15)
[2021-04-25] MEDS: THIAMINE HCL 100 MG TABLET (FP) PO SCH (22:15)
[2021-04-26] MEDS ORDERED: methaDONE HCL 40 MG DISPERSABLE TABLET ONE (03:15)
[2021-04-26] MEDS ORDERED: methaDONE HCL 10 MG TABLET ONE (03:15)
[2021-04-26] MEDS: PRENATAL VITAMINS W/ FOLIC ACID TABLET (FP) PO SCH (10:48)
[2021-04-26] MEDS: IMATINIB MESYLATE 400 MG PO SCH (10:48)
[2021-04-26] MEDS: NICOTINE 14 MG/24 HOURS TOPICAL PATCH TD SCH (10:48)
[2021-04-26] MEDS ORDERED: PNEUMOC 13-VAL CONJ-DIP CRM/PF 0.5 ML DISP.SYRIN IM ONE (12:00)
[2021-04-26] MEDS: THIAMINE HCL 100 MG TABLET (FP) PO SCH (21:42)
[2021-04-26] MEDS: MELATONIN 5 MG TABLETS PO SCH (21:42)
[2021-04-26 22:57] LABS: SYPHILIS W/ RPR CONF NON-REACTIVE (NONREACTIVE)
[2021-04-27] MEDS ORDERED: methaDONE HCL 10 MG TABLET ONE (02:56)
[2021-04-27] MEDS ORDERED: methaDONE HCL 40 MG DISPERSABLE TABLET ONE (02:57)
[2021-04-27] MEDS: PRENATAL VITAMINS W/ FOLIC ACID TABLET (FP) PO SCH (09:40)
[2021-04-27] MEDS: NICOTINE 14 MG/24 HOURS TOPICAL PATCH TD SCH (09:40)
[2021-04-27] MEDS: IMATINIB MESYLATE 400 MG PO SCH (09:41)
[2021-04-27 16:30] LABS: PH,URINE 6.5 (5.0-8.0); URINE APPEARANCE CLEAR; URINE BILIRUBIN NEGATIVE (NEGATIVE); URINE COLOR YELLOW; URINE GLUCOSE (UA) NEGATIVE (NEGATIVE); URINE KETONE NEGATIVE (NEGATIVE); URINE LEUK ESTERASE NEGATIVE (NEGATIVE); URINE NITRITE NEGATIVE (NEGATIVE); URINE PROTEIN NEGATIVE (NEGATIVE); URINE UROBILINOGEN 0.2 mg/dL (0.2-1.0)
[2021-04-27] MEDS: MELATONIN 5 MG TABLETS PO SCH (21:18)
[2021-04-27] MEDS: THIAMINE HCL 100 MG TABLET (FP) PO SCH (21:18)
[2021-04-28] MEDS ORDERED: methaDONE HCL 10 MG TABLET ONE (03:05)
[2021-04-28] MEDS ORDERED: methaDONE HCL 40 MG DISPERSABLE TABLET ONE (03:05)
[2021-04-28] MEDS: PRENATAL VITAMINS W/ FOLIC ACID TABLET (FP) PO SCH (09:41)
[2021-04-28] MEDS: NICOTINE 14 MG/24 HOURS TOPICAL PATCH TD SCH (09:41)
[2021-04-28] MEDS: IMATINIB MESYLATE 400 MG PO SCH (09:42)
[2021-04-28] MEDS: MELATONIN 5 MG TABLETS PO SCH (21:43)
[2021-04-28] MEDS: THIAMINE HCL 100 MG TABLET (FP) PO SCH (21:43)
[2021-04-29] MEDS ORDERED: methaDONE HCL 40 MG DISPERSABLE TABLET ONE (03:17)
[2021-04-29] MEDS ORDERED: methaDONE HCL 10 MG TABLET ONE (03:17)
[2021-04-29] MEDS: PRENATAL VITAMINS W/ FOLIC ACID TABLET (FP) PO SCH (09:43)
[2021-04-29] MEDS: NICOTINE 14 MG/24 HOURS TOPICAL PATCH TD SCH (09:44)
[2021-04-29] MEDS: IMATINIB MESYLATE 400 MG PO SCH (09:44)
[2021-04-29] MEDS: MELATONIN 5 MG TABLETS PO SCH (21:17)
[2021-04-29] MEDS: THIAMINE HCL 100 MG TABLET (FP) PO SCH (21:17)
[2021-04-30] MEDS ORDERED: methaDONE HCL 10 MG TABLET ONE (02:52)
[2021-04-30] MEDS ORDERED: methaDONE HCL 40 MG DISPERSABLE TABLET ONE (02:52)
[2021-04-30] MEDS: IMATINIB MESYLATE 400 MG PO SCH (10:46)
[2021-04-30] MEDS: PRENATAL VITAMINS W/ FOLIC ACID TABLET (FP) PO SCH (10:46)
[2021-04-30] MEDS: NICOTINE 14 MG/24 HOURS TOPICAL PATCH TD SCH (10:47)
[2021-04-30] MEDS: MELATONIN 5 MG TABLETS PO SCH (21:18)
[2021-04-30] MEDS: THIAMINE HCL 100 MG TABLET (FP) PO SCH (21:18)
[2021-05-01] MEDS ORDERED: methaDONE HCL 40 MG DISPERSABLE TABLET ONE (03:06)
[2021-05-01] MEDS ORDERED: methaDONE HCL 10 MG TABLET ONE (03:06)
[2021-05-01] MEDS: IMATINIB MESYLATE 400 MG PO SCH (13:25)
[2021-05-01] MEDS: NICOTINE 14 MG/24 HOURS TOPICAL PATCH TD SCH (13:26)
[2021-05-01] MEDS: PRENATAL VITAMINS W/ FOLIC ACID TABLET (FP) PO SCH (13:26)
[2021-05-01] MEDS: THIAMINE HCL 100 MG TABLET (FP) PO SCH (21:53)
[2021-05-01] MEDS: MELATONIN 5 MG TABLETS PO SCH (21:53)
[2021-05-02] MEDS ORDERED: methaDONE HCL 40 MG DISPERSABLE TABLET ONE (06:09)
[2021-05-02] MEDS ORDERED: methaDONE HCL 10 MG TABLET ONE (06:09)
[2021-05-02] MEDS: IMATINIB MESYLATE 400 MG PO SCH (09:27)
[2021-05-02] MEDS: NICOTINE 14 MG/24 HOURS TOPICAL PATCH TD SCH (09:27)
[2021-05-02] MEDS: PRENATAL VITAMINS W/ FOLIC ACID TABLET (FP) PO SCH (09:27)
[2021-05-02] MEDS: IMATINIB MESYLATE PO SCH (12:13)
[2021-05-02] MEDS: THIAMINE HCL 100 MG TABLET (FP) PO SCH (21:22)
[2021-05-02] MEDS: MELATONIN 5 MG TABLETS PO SCH (21:22)
[2021-05-03] MEDS ORDERED: methaDONE HCL 40 MG DISPERSABLE TABLET ONE (03:22)
[2021-05-03] MEDS ORDERED: methaDONE HCL 10 MG TABLET ONE (03:22)
[2021-05-03] MEDS: PRENATAL VITAMINS W/ FOLIC ACID TABLET (FP) PO SCH (09:48)
[2021-05-03] MEDS: NICOTINE 14 MG/24 HOURS TOPICAL PATCH TD SCH (09:48)
[2021-05-03] MEDS: IMATINIB MESYLATE PO SCH (13:17)
[2021-05-03] MEDS: THIAMINE HCL 100 MG TABLET (FP) PO SCH (21:57)
[2021-05-03] MEDS: MELATONIN 5 MG TABLETS PO SCH (21:58)
[2021-05-04] MEDS ORDERED: methaDONE HCL 10 MG TABLET ONE (03:10)
[2021-05-04] MEDS ORDERED: methaDONE HCL 40 MG DISPERSABLE TABLET ONE (03:10)
[2021-05-04] MEDS: NICOTINE 14 MG/24 HOURS TOPICAL PATCH TD SCH (10:02)
[2021-05-04] MEDS: PRENATAL VITAMINS W/ FOLIC ACID TABLET (FP) PO SCH (10:03)
[2021-05-04] MEDS: IMATINIB MESYLATE PO SCH (13:00)
[2021-05-04] MEDS: MELATONIN 5 MG TABLETS PO SCH (21:20)
[2021-05-04] MEDS: THIAMINE HCL 100 MG TABLET (FP) PO SCH (21:20)
[2021-05-05] MEDS ORDERED: methaDONE HCL 40 MG DISPERSABLE TABLET ONE (02:46)
[2021-05-05] MEDS ORDERED: methaDONE HCL 10 MG TABLET ONE (02:46)
[2021-05-05] MEDS: MAGNESIUM HYDROX 2400MG/30ML ORAL SUSPENSION 30 ML CUP PO PRN ×2 (06:33→21:03)
[2021-05-05] MEDS: NICOTINE 14 MG/24 HOURS TOPICAL PATCH TD SCH (12:12)
[2021-05-05] MEDS: PRENATAL VITAMINS W/ FOLIC ACID TABLET (FP) PO SCH (12:35)
[2021-05-05] MEDS: IMATINIB MESYLATE PO SCH (12:35)
[2021-05-05] MEDS: MELATONIN 5 MG TABLETS PO SCH (21:01)
[2021-05-05] MEDS: THIAMINE HCL 100 MG TABLET (FP) PO SCH (21:02)
[2021-05-06] MEDS ORDERED: methaDONE HCL 10 MG TABLET ONE (03:19)
[2021-05-06] MEDS ORDERED: methaDONE HCL 40 MG DISPERSABLE TABLET ONE (03:19)
[2021-05-06] MEDS: NICOTINE 14 MG/24 HOURS TOPICAL PATCH TD SCH (10:47)
[2021-05-06] MEDS: PRENATAL VITAMINS W/ FOLIC ACID TABLET (FP) PO SCH (10:51)
[2021-05-06] MEDS: IMATINIB MESYLATE PO SCH (12:24)
[2021-05-06] MEDS: THIAMINE HCL 100 MG TABLET (FP) PO SCH (21:55)
[2021-05-06] MEDS: MAGNESIUM HYDROX 2400MG/30ML ORAL SUSPENSION 30 ML CUP PO PRN (21:55)
[2021-05-06] MEDS: MELATONIN 5 MG TABLETS PO SCH (21:55)
[2021-05-07] MEDS ORDERED: methaDONE HCL 10 MG TABLET ONE (03:09)
[2021-05-07] MEDS ORDERED: methaDONE HCL 40 MG DISPERSABLE TABLET ONE (03:09)
[2021-05-07] MEDS: PRENATAL VITAMINS W/ FOLIC ACID TABLET (FP) PO SCH (10:38)
[2021-05-07] MEDS: NICOTINE 14 MG/24 HOURS TOPICAL PATCH TD SCH (10:38)
[2021-05-07] MEDS: IMATINIB MESYLATE PO SCH (12:34)
[2021-05-07] MEDS: MAGNESIUM HYDROX 2400MG/30ML ORAL SUSPENSION 30 ML CUP PO PRN (21:12)
[2021-05-07] MEDS: MELATONIN 5 MG TABLETS PO SCH (21:12)
[2021-05-07] MEDS: THIAMINE HCL 100 MG TABLET (FP) PO SCH (21:12)
[2021-05-08] MEDS ORDERED: methaDONE HCL 10 MG TABLET ONE (03:01)
[2021-05-08] MEDS ORDERED: methaDONE HCL 40 MG DISPERSABLE TABLET ONE (03:01)
[2021-05-08] MEDS: PRENATAL VITAMINS W/ FOLIC ACID TABLET (FP) PO SCH (10:28)
[2021-05-08] MEDS: NICOTINE 14 MG/24 HOURS TOPICAL PATCH TD SCH (10:28)
[2021-05-08] MEDS: IMATINIB MESYLATE PO SCH (12:27)
[2021-05-08] MEDS: MAGNESIUM HYDROX 2400MG/30ML ORAL SUSPENSION 30 ML CUP PO PRN (21:48)
[2021-05-08] MEDS: MELATONIN 5 MG TABLETS PO SCH (21:49)
[2021-05-08] MEDS: THIAMINE HCL 100 MG TABLET (FP) PO SCH (21:49)
[2021-05-09] MEDS ORDERED: methaDONE HCL 10 MG TABLET ONE (06:12)
[2021-05-09] MEDS ORDERED: methaDONE HCL 40 MG DISPERSABLE TABLET ONE (06:13)
[2021-05-09] MEDS: PRENATAL VITAMINS W/ FOLIC ACID TABLET (FP) PO SCH (11:38)
[2021-05-09] MEDS: NICOTINE 14 MG/24 HOURS TOPICAL PATCH TD SCH (11:38)
[2021-05-09] MEDS: IMATINIB MESYLATE PO SCH (12:30)
[2021-05-09] MEDS: THIAMINE HCL 100 MG TABLET (FP) PO SCH (21:56)
[2021-05-09] MEDS: MELATONIN 5 MG TABLETS PO SCH (21:56)
[2021-05-09] MEDS: MAGNESIUM HYDROX 2400MG/30ML ORAL SUSPENSION 30 ML CUP PO PRN (21:57)
[2021-05-10] MEDS ORDERED: methaDONE HCL 10 MG TABLET ONE (04:11)
[2021-05-10] MEDS ORDERED: methaDONE HCL 40 MG DISPERSABLE TABLET ONE (04:11)
[2021-05-10] MEDS: NICOTINE 14 MG/24 HOURS TOPICAL PATCH TD SCH (09:49)
[2021-05-10] MEDS: PRENATAL VITAMINS W/ FOLIC ACID TABLET (FP) PO SCH (09:49)
[2021-05-10] MEDS: IMATINIB MESYLATE PO SCH (12:18)
[2021-05-10] MEDS: THIAMINE HCL 100 MG TABLET (FP) PO SCH (21:57)
[2021-05-10] MEDS: MELATONIN 5 MG TABLETS PO SCH (21:57)
[2021-05-10] MEDS: MAGNESIUM HYDROX 2400MG/30ML ORAL SUSPENSION 30 ML CUP PO PRN (21:57)
[2021-05-11] MEDS ORDERED: methaDONE HCL 10 MG TABLET ONE (02:57)
[2021-05-11] MEDS ORDERED: methaDONE HCL 40 MG DISPERSABLE TABLET ONE (02:57)
[2021-05-11] MEDS ORDERED: PT OWN MED DRAWER 7, Y5N ONE (08:51)
[2021-05-11] MEDS: PRENATAL VITAMINS W/ FOLIC ACID TABLET (FP) PO SCH (10:33)
[2021-05-11] MEDS: NICOTINE 14 MG/24 HOURS TOPICAL PATCH TD SCH (10:33)
[2021-05-11] MEDS: IMATINIB MESYLATE PO SCH (13:14)
[2021-05-11] MEDS: MELATONIN 5 MG TABLETS PO SCH (21:12)
[2021-05-11] MEDS: THIAMINE HCL 100 MG TABLET (FP) PO SCH (21:12)
[2021-05-11] MEDS: MAGNESIUM HYDROX 2400MG/30ML ORAL SUSPENSION 30 ML CUP PO PRN (21:13)
[2021-05-12] MEDS ORDERED: methaDONE HCL 10 MG TABLET ONE (03:18)
[2021-05-12] MEDS ORDERED: methaDONE HCL 40 MG DISPERSABLE TABLET ONE (03:18)
[2021-05-12] MEDS: NICOTINE 14 MG/24 HOURS TOPICAL PATCH TD SCH (10:11)
[2021-05-12] MEDS: PRENATAL VITAMINS W/ FOLIC ACID TABLET (FP) PO SCH (10:11)
[2021-05-12] MEDS: IMATINIB MESYLATE PO SCH (13:13)
[2021-05-12] MEDS: THIAMINE HCL 100 MG TABLET (FP) PO SCH (21:07)
[2021-05-12] MEDS: MAGNESIUM HYDROX 2400MG/30ML ORAL SUSPENSION 30 ML CUP PO PRN (21:07)
[2021-05-12] MEDS: MELATONIN 5 MG TABLETS PO SCH (21:07)
[2021-05-13] MEDS ORDERED: methaDONE HCL 10 MG TABLET ONE (03:03)
[2021-05-13] MEDS ORDERED: methaDONE HCL 40 MG DISPERSABLE TABLET ONE (03:03)
[2021-05-13 07:12] VITALS: BP 138/83; PULSE 75; TEMP 97.5
[2021-05-13] MEDS: NICOTINE 14 MG/24 HOURS TOPICAL PATCH TD SCH (09:24)
[2021-05-13] MEDS: PRENATAL VITAMINS W/ FOLIC ACID TABLET (FP) PO SCH (09:24)
== END 2021-05-13 10:45 | disposition home or self-care (01) | DRG 895 ==
LOC: YASAS 18:58 → Y5N 04-25 01:15
PROVIDERS: ADMIT Allergy & Immunology; ATTEND Allergy & Immunology
PROC: HZ42ZZZ Group Counseling for Substance Abuse Treatment, Cognitive-Behavioral (ICD-10-PCS; principal; 2021-04-25)
DX: F10.20 Alcohol dependence, uncomplicated (principal); F11.20 Opioid dependence, uncomplicated; F14.20 Cocaine dependence, uncomplicated; F17.210 Nicotine dependence, cigarettes, uncomplicated; F41.8 Other specified anxiety disorders; I10 Essential (primary) hypertension; K59.09 Other constipation; M17.0 Bilateral primary osteoarthritis of knee; M19.071 Primary osteoarthritis, right ankle and foot; M1A.9XX0 Chronic gout, unspecified, without tophus (tophi); R26.89 Other abnormalities of gait and mobility; R29.6 Repeated falls; Z85.6 Personal history of leukemia; Z99.89 Dependence on other enabling machines and devices; Z91.14 Patient's other noncompliance with medication regimen; Z91.018 Allergy to other foods
CPT/HCPCS: 36415; 80053; 81003; 85027; 86780; 86803; 90670; 90686; C9803; G0008; G0009; U0003; U0005

== ENCOUNTER 2024-12-24 13:38 | Inpatient (IN) | payer OTHER ==
[2024-12-24 14:36] VITALS: BMI 38.0
[2024-12-24] MEDS ORDERED: guaiFENesin 600 MG TABLET.ER (FP) PO PRN (15:02)
[2024-12-24] MEDS ORDERED: DOCUSATE SODIUM 100 MG CAPSULE (FP) PO PRN (15:02)
[2024-12-24] MEDS ORDERED: MAGNESIUM HYDROX 2400MG/30ML ORAL SUSPENSION 30 ML CUP PO PRN (15:02)
[2024-12-24] MEDS ORDERED: P-EPHED 60MG/TRIPROLIDI 2.5MG TABLET PO PRN (15:02)
[2024-12-24] MEDS ORDERED: NICOTINE POLACRILEX 2 MG GUM BUC PRN (15:02)
[2024-12-24] MEDS ORDERED: BENZOCAINE/MENTHOL (CHLORASEPTIC ) LOZENGE MM PRN (15:02)
[2024-12-24] MEDS ORDERED: NICOTINE POLACRILEX 2 MG LOZENGE BC PRN (15:02)
[2024-12-24] MEDS ORDERED: NALOXONE (NARCAN) HCL 4 MG/0.1 ML SPRAY NS PRN (15:02)
[2024-12-24] MEDS ORDERED: MAG HYDROX/AL HYDROX/SIMETH 30 ML UNIT-DOSE CUP PO PRN (15:02)
[2024-12-24] MEDS ORDERED: LOPERAMIDE HCL 2 MG CAPSULE PO PRN (15:02)
[2024-12-24] MEDS ORDERED: POLYETHYLENE GLYCOL (HEALTHYLAX) 3350 17 GM PACKET PO PRN (15:02)
[2024-12-24] MEDS ORDERED: ACETAMINOPHEN 325 MG TABLET (FP) PO PRN (15:02)
[2024-12-24] MEDS ORDERED: BENZONATATE 200 MG CAPSULE PO PRN (15:02)
[2024-12-24] MEDS ORDERED: IBUPROFEN 400 MG TABLET (FP) PO PRN (15:02)
[2024-12-24] MEDS ORDERED: SENNOSIDES 8.6MG TABLET (FP) PO PRN (16:30)
[2024-12-24] MEDS: THIAMINE 100 MG TABLET PO SCH (22:55)
[2024-12-24] MEDS: MELATONIN 5 MG TABLETS PO SCH (22:55)
[2024-12-25] MEDS ORDERED: methaDONE HCL 10 MG TABLET PO ONE (09:36)
[2024-12-25] MEDS: PRENATAL VITAMINS W/ FOLIC ACID TABLET (FP) PO SCH (09:55)
[2024-12-25] MEDS: CHOLECALCIFEROL (VIT D3) 1,000 UNIT (25 MCG) TABLET PO SCH (09:56)
[2024-12-25] MEDS: IMATINIB MESYLATE 100 MG TABLET PO SCH ×2 (10:51→22:15)
[2024-12-25 12:14] LABS: HEMATOCRIT 36.9 % (40.1-51.0); HEMOGLOBIN 11.4 g/dL (13.7-17.5); MCHC 30.9 g/dl (32.3-36.5); MEAN CELL VOLUME 80.7 fl (79.0-92.2); MEAN PLT VOLUME 10.9 fl (9.4-12.4); PLATELET COUNT 289 x10^3/uL (163-337); RDW 15.9 % (12.2-16.4)
[2024-12-25 12:16] LABS: POTASSIUM 4.3 mmol/L (3.5-5.1)
[2024-12-25 12:22] LABS: ALBUMIN 3.2 g/dl (3.4-5.0); BLOOD UREA NITROGEN 10.5 mg/dL (7-18)
[2024-12-25 12:26] LABS: BILIRUBIN,TOTAL 0.4 mg/dL (0.2-1); CREATININE 0.7 mg/dL (0.55-1.3)
[2024-12-25 12:27] LABS: TOT PROT 7.2 g/dl (6.4-8.2)
[2024-12-25 12:44] LABS: SYPHILIS W/ RPR CONF NON-REACTIVE (NONREACTIVE)
[2024-12-25 13:13] LABS: HCV DIAGNOSTIC IN-HOUSE W/RFLX NON-REACTIVE (NONREACTIVE)
[2024-12-26] MEDS ORDERED: methaDONE HCL 10 MG TABLET PO SCH (09:00)
[2024-12-26] MEDS ORDERED: IMATINIB MESYLATE 100 MG TABLET PO SCH (15:49)
[2024-12-26] MEDS: IMATINIB MESYLATE 400 MG TABLET PO ONE (22:06)
[2024-12-27] MEDS: IBUPROFEN 600 MG TABLET (FP) PO PRN (21:09)
[2024-12-27] MEDS: IMATINIB MESYLATE 100 MG TABLET PO SCH (21:09)
[2024-12-29 06:21] VITALS: BP 137/76; PULSE 71; RESP 16; TEMP 97.8
== END 2024-12-29 13:45 | disposition left against medical advice (07) | DRG 894 ==
LOC: YASAS 13:38 → Y3NR 16:14 → Y5N 12-26 12:31
PROVIDERS: ADMIT Psychiatry & Neurology Pain Medicine; ATTEND Family Medicine Addiction Medicine
PROC: HZ42ZZZ Group Counseling for Substance Abuse Treatment, Cognitive-Behavioral (ICD-10-PCS; principal; 2024-12-24)
DX: F14.20 Cocaine dependence, uncomplicated (principal); F11.20 Opioid dependence, uncomplicated; C92.10 Chronic myeloid leukemia, BCR/ABL-positive, not having achieved remission; Z59.01 Sheltered homelessness; F17.210 Nicotine dependence, cigarettes, uncomplicated; M17.11 Unilateral primary osteoarthritis, right knee; M19.071 Primary osteoarthritis, right ankle and foot; R26.89 Other abnormalities of gait and mobility; Z99.89 Dependence on other enabling machines and devices
CPT/HCPCS: 36415; 80053; 82962; 85027; 86780; 86803; 93005; 93010